=== PATIENT | male | born 1960 | race Caucasian/White ===

== ENCOUNTER 2016-12-03 23:24 | Emergency (ER) | payer MEDICAID ==
[2016-12-03] MEDS ORDERED: HYDROMORPHONE HCL 2 MG/ML SOL IV ONE (23:29)
[2016-12-03] MEDS ORDERED: HYDROMORPHONE HCL 2 MG/ML SOL ONE (23:30)
[2016-12-03] MEDS ORDERED: FENTANYL 100MCG/2ML SOL IV ONE (23:39)
[2016-12-03] MEDS ORDERED: MIDAZOLAM 2 MG/2 ML SOL IV ONE (23:39)
[2016-12-03 23:41] VITALS: TEMP 99.3
[2016-12-03] MEDS ORDERED: FENTANYL 100MCG/2ML SOL ONE (23:41)
[2016-12-03] MEDS ORDERED: MIDAZOLAM 2 MG/2 ML SOL ONE (23:41)
[2016-12-04] MEDS ORDERED: PROPOFOL 10 MG/ML EMU IV ONE (01:25)
[2016-12-04 01:54] VITALS: RESP 16
[2016-12-04 02:53] VITALS: BP 122/72; PULSE 91; O2SAT 91
== END 2016-12-04 02:30 | disposition home or self-care (01) | DRG 561 ==
LOC: ED 23:24
DX: T84.020A Dislocation of internal right hip prosthesis, initial encounter (principal); X50.0XXA Overexertion from strenuous movement or load, initial encounter
CPT/HCPCS: 72170; 99285; J1170; J2250; J3010; J2704